=== PATIENT | female | born 1945 | race Caucasian/White ===

== ENCOUNTER → 2016-12-21 | Outpatient (CLI) | payer OTHER | LOC: FIMAGING 13:46 | PROVIDERS: ATTEND Internal Medicine Critical Care Medicine | DX: R06.02 Shortness of breath (principal); J44.9 Chronic obstructive pulmonary disease, unspecified; Z95.1 Presence of aortocoronary bypass graft ==

== ENCOUNTER → 2017-01-19 | Outpatient (CLI) | payer OTHER | LOC: FIMAGING 08:14 | PROVIDERS: ATTEND Internal Medicine Critical Care Medicine | DX: K21.9 Gastro-esophageal reflux disease without esophagitis (principal); K44.9 Diaphragmatic hernia without obstruction or gangrene; R06.00 Dyspnea, unspecified; J44.9 Chronic obstructive pulmonary disease, unspecified; G47.33 Obstructive sleep apnea (adult) (pediatric) ==

== ENCOUNTER → 2017-02-15 | Outpatient (CLI) | payer OTHER, MEDICARE | LOC: FIMAGING 14:55 | PROVIDERS: ATTEND Internal Medicine Critical Care Medicine ==

== ENCOUNTER → 2017-05-11 | Outpatient (CLI) | payer OTHER | LOC: FIMAGING 12:38 | PROVIDERS: ATTEND Internal Medicine Critical Care Medicine | DX: R06.02 Shortness of breath (principal); F17.200 Nicotine dependence, unspecified, uncomplicated; Z98.890 Other specified postprocedural states ==